=== PATIENT | male | born 1955 | race Caucasian/White ===

== ENCOUNTER 2016-05-29 20:48 | Emergency (ER) | payer MEDICARE ==
[~2016-05-29 20:48] MED LIST: CYCLOBENZAPRINE10 M1 PO; NO HOME MEDICATION XX; NORCO 5/3251 TAB PO
[2016-05-30] MEDS ORDERED: NORCO 5-325 TA1 EACH PO (01:35)
[2016-05-30] MEDS ORDERED: LYRICA75 MG/CAP PO (01:35)
== END 2016-05-30 01:46 ==
LOC: EDMED 20:48
DX: M62.838 Other muscle spasm (principal); Z88.0 Allergy status to penicillin; Z89.612 Acquired absence of left leg above knee
CPT/HCPCS: J1170; J3010; J3360